=== PATIENT | male | born 1955 | race Caucasian/White ===

== ENCOUNTER → 2021-04-08 | Outpatient (CLI) | payer MEDICARE ==
[~2021-04-08] MED LIST: AMLO-258 PO; APIX2.5T PO; DEXA6TAB7 PO; LISI20TA24 PO; SIMV-46 PO
== END | disposition home or self-care (01) ==
LOC: RAH 07:40
PROVIDERS: ATTEND Family Medicine
DX: Z01.818 Encounter for other preprocedural examination (principal)
CPT/HCPCS: 71046

== ENCOUNTER 2021-05-06 08:00 | Inpatient (IN) | payer MEDICARE ==
[2021-05-05 10:10] VITALS: BP 163/92
[2021-05-05 10:23] LABS: BASOPHILS % (AUTO) 0.4 % (0.0-5.0); EOSINOPHILS % (AUTO) 2.5 % (0.0-8.0); HEMATOCRIT 52.7 % (42-54); LYMPHOCYTES % (AUTO) 31.2 % (21.0-51.0); MEAN CORPUSCULAR HEMOGLOBIN 28.7 pg (27.0-33.0); MEAN CORPUSCULAR HGB CONC 34.2 g/dL (32.0-36.0); MEAN CORPUSCULAR VOLUME 83.9 fL (79-99); MONOCYTES % (AUTO) 7.9 % (3.0-13.0); NEUTROPHILS % (AUTO) 57.7 % (40.0-77.0); PLATELET COUNT (AUTO) 250 K/uL (130-400); RED BLOOD CELL COUNT(AUTO) 6.28 MIL/uL (4.50-6.20); RED CELL DISTRIBUTION WIDTH 12.5 % (11.0-15.5); WHITE BLOOD COUNT (AUTO) 7.7 K/uL (4.8-10.8)
[2021-05-05 10:29] LABS: APPEARANCE,URINE Clear (CLEAR); BILIRUBIN,URINE Negative (NEGATIVE); COLOR,URINE Yellow (YELLOW); GLUCOSE, URINE (UA) Negative (NEGATIVE); KETONES,URINE Trace mg/dL (NEGATIVE); LEUKOCYTE ESTERASE ,URINE Negative (NEGATIVE); NITRATE,URINE Negative (NEGATIVE); OCCULT BLOOD,URINE Negative (NEGATIVE); PROTEIN,URINE Negative (NEGATIVE)
[2021-05-05 10:38] LABS: BACTERIA,URINE Rare /HPF (None Seen); MUCUS,URINE Few LPF (None Seen); RBC,URINE 0-1 /HPF (0-1); SQUAMOUS EPITHELIAL CELL,UR Rare /HPF (0-2); WBC,URINE 0-1 /HPF (0-1)
[~2021-05-06] VITALS: Ht 177.8 cm; Wt 114.8 kg
[~2021-05-06 08:00] MED LIST changes: -APIX2.5T PO; -DEXA6TAB7 PO
[2021-05-07] VITALS (21 sets, daily range): BP systolic 101–139; BP diastolic 55–86
[2021-05-07] MEDS ORDERED: CEFAZOLIN SODIUM 1 GM VIAL ONE ×4 (08:12→22:12)
[2021-05-07] MEDS ORDERED: LACTATED RINGERS 1000ML 1,000 ML IV ONE (08:12)
[2021-05-07] MEDS ORDERED: CEFAZOLIN 3GM /D5W 100ML 100 ML IV ONE (09:00)
[2021-05-07] MEDS ORDERED: TRANEXAMIC ACID 1000MG/10ML ONE ×2 (12:25→15:44)
[2021-05-07] MEDS ORDERED: PROPOFOL 10 MG/ML 20ML VIAL IV ONE (12:36)
[2021-05-07] MEDS ORDERED: MIDAZOLAM HCL 1 MG/ML 2ML VIAL ONE ×2 (12:36→16:00)
[2021-05-07] MEDS ORDERED: SUCCINYLCHOLINE CHLORIDE 20 MG/ML 10 ML VIAL ONE (12:36)
[2021-05-07] MEDS ORDERED: LIDOCAINE HCL-MPF 1% 5ML AMP IJ ONE (12:36)
[2021-05-07] MEDS ORDERED: FENTANYL CITRATE PF 50 MCG/1 ML 2ML VIAL ONE (12:37)
[2021-05-07] MEDS ORDERED: ROCURONIUM 10MG/1ML SYR 10 MG/ML ML ONE ×2 (12:37→13:37)
[2021-05-07] MEDS ORDERED: ROPIVACAINE 0.5% 5MG/ML 30ML IJ ONE (12:40)
[2021-05-07] MEDS ORDERED: CALCIUM CARB 500MG PO PRN (15:30)
[2021-05-07] MEDS ORDERED: KCL 20 MEQ ERTAB PO PRN (15:30)
[2021-05-07] MEDS ORDERED: FERROUS FUMARATE 324 MG TABLET PO PRN (15:30)
[2021-05-07] MEDS ORDERED: OXYCODONE HCL 5 MG TAB PO PRN (15:30)
[2021-05-07] MEDS ORDERED: TEMAZEPAM 15 MG CAPSULE PO PRN (15:30)
[2021-05-07] MEDS: ACETAMINOPHEN 500 MG TABLET PO SCH ×2 (15:30→19:56)
[2021-05-07] MEDS ORDERED: TRAMADOL HCL 50 MG TABLET PO PRN (15:30)
[2021-05-07] MEDS ORDERED: LIDOCAINE HCL-MPF 1% 2ML VIAL IV PRN (15:30)
[2021-05-07] MEDS ORDERED: POTASSIUM CHLORIDE 20MEQ/100ML 100 ML IV PRN (15:30)
[2021-05-07] MEDS ORDERED: DiphenhydrAMINE HCL 50 MG/ML VIAL IVP PRN (15:30)
[2021-05-07] MEDS ORDERED: POTASSIUM CHLORIDE 10% ELIXIR 20 MEQ/15 ML UDCUP PO PRN (15:30)
[2021-05-07] MEDS ORDERED: ONDANSETRON 4MG INJ IVP PRN (15:30)
[2021-05-07] MEDS: 0.9%NACL 1000ML 1,000 ML IV SCH (15:30)
[2021-05-07] MEDS ORDERED: GLYCOPYRROLATE 1 MG/5 ML SYRINGE ONE (15:50)
[2021-05-07] MEDS ORDERED: NEOSTIGMINE 5MG/5ML SYR IV ONE (15:50)
[2021-05-07] MEDS ORDERED: MEPERIDINE-PF 25 MG/ML SYG ONE ×3 (16:00→16:24)
[2021-05-07] MEDS: OXYCODONE HCL 5 MG TAB PO PRN ×2 (17:55→22:00)
[2021-05-07] MEDS: KETOROLAC 15MG/ML VIAL (15MG/ML) IV PRN (19:29)
[2021-05-07] MEDS: ASPIRIN 81 MG EC TAB PO SCH (19:55)
[2021-05-07] MEDS: PREGABALIN 25 MG CAP PO SCH (19:55)
[2021-05-07] MEDS: FAMOTIDINE 20MG TAB PO SCH (19:55)
[2021-05-07] MEDS: CELECOXIB 200 MG CAP PO SCH (19:55)
[2021-05-07] MEDS: CEFAZOLIN 3GM /D5W 100ML 100 ML IV SCH (20:30)
[2021-05-07] MEDS ORDERED: LISINOPRIL 20 MG TABLET ONE (21:54)
[2021-05-07] MEDS ORDERED: SIMVASTATIN 20 MG TABLET ONE (21:54)
[2021-05-08] VITALS: BP_SYST 117; BP_SYST 119; BP_DIAS 50; BP_DIAS 83
[2021-05-08] MEDS: 0.9%NACL 1000ML 1,000 ML IV SCH ×2 (01:22→11:30)
[2021-05-08] MEDS: KETOROLAC 15MG/ML VIAL (15MG/ML) IV PRN (01:23)
[2021-05-08 04:00] VITALS: BP 118/76
[2021-05-08 04:00] LABS: HEMATOCRIT 43.2 % (42-54); MEAN CORPUSCULAR HGB CONC 33.8 g/dL (32.0-36.0); MEAN CORPUSCULAR VOLUME 82.9 fL (79-99); RED BLOOD CELL COUNT(AUTO) 5.21 MIL/uL (4.50-6.20); RED CELL DISTRIBUTION WIDTH 12.5 % (11.0-15.5); WHITE BLOOD COUNT (AUTO) 11.7 K/uL (4.8-10.8)
[2021-05-08] MEDS: ACETAMINOPHEN 500 MG TABLET PO SCH ×2 (04:00→14:36)
[2021-05-08] MEDS: OXYCODONE HCL 5 MG TAB PO PRN ×4 (04:00→20:19)
[2021-05-08 04:06] LABS: CREATININE 1.1 mg/dL (0.5-1.5); POTASSIUM 3.9 mmol/L (3.5-5.1)
[2021-05-08] MEDS: CEFAZOLIN 3GM /D5W 100ML 100 ML IV SCH (04:43)
[2021-05-08] MEDS: POLYETHYLENE GLYCOL 3350 17 GM POWD.PACK PO SCH (07:56)
[2021-05-08] MEDS: ASPIRIN 81 MG EC TAB PO SCH ×2 (07:56→20:19)
[2021-05-08] MEDS: AMLODIPINE 5 MG TAB PO SCH (07:56)
[2021-05-08] MEDS: FAMOTIDINE 20MG TAB PO SCH ×2 (07:56→20:19)
[2021-05-08] MEDS: PREGABALIN 25 MG CAP PO SCH ×2 (07:57→20:19)
[2021-05-08] MEDS: LISINOPRIL 20 MG TABLET PO SCH (07:57)
[2021-05-08] MEDS: TAMSULOSIN HCL 0.4 MG CAP.ER.24H PO SCH (07:57)
[2021-05-08] MEDS: CELECOXIB 200 MG CAP PO SCH ×2 (07:57→20:19)
[2021-05-08 08:00] VITALS: BP 126/85
[2021-05-08 12:04] VITALS: BP 138/61
[2021-05-08 16:00] VITALS: BP 127/77
[2021-05-08] MEDS: SIMVASTATIN 20 MG TABLET PO SCH (17:24)
[2021-05-08 20:00] VITALS: BP 119/73
[2021-05-09] VITALS: BP 118/79
[2021-05-09] MEDS: ACETAMINOPHEN 500 MG TABLET PO SCH ×3 (00:14→15:30)
[2021-05-09] MEDS: KETOROLAC 15MG/ML VIAL (15MG/ML) IV PRN ×2 (00:14→13:59)
[2021-05-09 03:55] VITALS: BP 120/75
[2021-05-09 04:53] LABS: BASOPHILS % (AUTO) 0.3 % (0.0-5.0); EOSINOPHILS % (AUTO) 2.1 % (0.0-8.0); HEMATOCRIT 38.2 % (42-54); LYMPHOCYTES % (AUTO) 20.6 % (21.0-51.0); MEAN CORPUSCULAR HEMOGLOBIN 28.8 pg (27.0-33.0); MEAN CORPUSCULAR HGB CONC 34.3 g/dL (32.0-36.0); MONOCYTES % (AUTO) 13.7 % (3.0-13.0); NEUTROPHILS % (AUTO) 63.1 % (40.0-77.0); PLATELET COUNT (AUTO) 186 K/uL (130-400); RED BLOOD CELL COUNT(AUTO) 4.55 MIL/uL (4.50-6.20); RED CELL DISTRIBUTION WIDTH 12.8 % (11.0-15.5); WHITE BLOOD COUNT (AUTO) 8.6 K/uL (4.8-10.8)
[2021-05-09] MEDS: OXYCODONE HCL 5 MG TAB PO PRN (05:43)
[2021-05-09 07:55] VITALS: BP 117/65
[2021-05-09] MEDS: AMLODIPINE 5 MG TAB PO SCH (09:00)
[2021-05-09] MEDS: LISINOPRIL 20 MG TABLET PO SCH (09:00)
[2021-05-09] MEDS: TAMSULOSIN HCL 0.4 MG CAP.ER.24H PO SCH (09:00)
[2021-05-09] MEDS: PREGABALIN 25 MG CAP PO SCH (09:00)
[2021-05-09] MEDS: ASPIRIN 81 MG EC TAB PO SCH (10:13)
[2021-05-09] MEDS: FAMOTIDINE 20MG TAB PO SCH (10:13)
[2021-05-09] MEDS: POLYETHYLENE GLYCOL 3350 17 GM POWD.PACK PO SCH (10:13)
[2021-05-09] MEDS: CELECOXIB 200 MG CAP PO SCH (10:13)
[2021-05-09 12:00] VITALS: BP 134/69
[2021-05-09] MEDS ORDERED: AEC81 PO (14:23)
[2021-05-09] MEDS ORDERED: HYDR-4060 PO (14:23)
[2021-05-09 15:50] VITALS: BP 116/70
[2021-05-09] MEDS: SIMVASTATIN 20 MG TABLET PO SCH (16:39)
[2021-05-10] MEDS ORDERED: BISACODYL 10 MG SUPP.RECT RC PRN (15:30)
== END 2021-05-09 17:00 | disposition home health service (06) | DRG 470 ==
LOC: EDSTATUS 08:00 → OBSVTOIN 05-07 07:51 → DAHIP 05-07 07:51 → 4AH 05-07 17:06
PROVIDERS: ADMIT Orthopaedic Surgery; ATTEND Orthopaedic Surgery
PROC: 3E0T33Z Introduction of Anti-inflammatory into Peripheral Nerves and Plexi, Percutaneous Approach (ICD-10-PCS; 2021-05-07)
PROC: 0SRC0J9 Replacement of Right Knee Joint with Synthetic Substitute, Cemented, Open Approach (ICD-10-PCS; principal; 2021-05-07 13:38)
PROC: 3E0T3BZ Introduction of Anesthetic Agent into Peripheral Nerves and Plexi, Percutaneous Approach (ICD-10-PCS; 2021-05-07 13:38)
DX: M17.11 Unilateral primary osteoarthritis, right knee (principal); G89.29 Other chronic pain; Z20.822 Contact with and (suspected) exposure to COVID-19; M23.8X2 Other internal derangements of left knee; E66.01 Morbid (severe) obesity due to excess calories; Z68.36 Body mass index [BMI] 36.0-36.9, adult; Z87.891 Personal history of nicotine dependence
CPT/HCPCS: 36415; 80048; 81001; 85025; 85027; 87088; 87635; 87641; 97039; G0378; J0330; J0690; J1885; J2175; J2250; J2704; J2710; J2795; J3010; J3490; J7120

== ENCOUNTER 2022-04-20 03:48 | Emergency (ER) | payer MEDICARE ==
[~2022-04-20] VITALS: Ht 177.8 cm; Wt 126.1 kg
[~2022-04-20 03:48] MED LIST changes: +AEC81 PO; +HYDR-4060 PO
[2022-04-20] MEDS ORDERED: HYDROXYZINE 25 MG TABLET ONE (04:53)
[2022-04-20] MEDS ORDERED: HYDROXYZINE 25 MG TABLET PO ONE (05:00)
[2022-04-20 05:05] VITALS: BP 144/82
[2022-04-20] MEDS ORDERED: HYDR25CA PO (05:10)
== END 2022-04-20 05:21 | disposition home or self-care (01) ==
LOC: EDH 03:48
DX: G47.00 Insomnia, unspecified (principal); I10 Essential (primary) hypertension; Z79.899 Other long term (current) drug therapy; E78.00 Pure hypercholesterolemia, unspecified

== ENCOUNTER 2022-05-29 14:00 | Observation (INO) | payer MEDICARE ==
[~2022-05-29] VITALS: Ht 177.8 cm; Wt 126.1 kg
[2022-05-29 09:50] LABS: BASOPHILS % (AUTO) 0.6 % (0.0-5.0); EOSINOPHILS % (AUTO) 4.7 % (0.0-8.0); HEMATOCRIT 54.7 % (42-54); MEAN CORPUSCULAR HEMOGLOBIN 29.7 pg (27.0-33.0); MEAN CORPUSCULAR HGB CONC 34.4 g/dL (32.0-36.0); MEAN CORPUSCULAR VOLUME 86.6 fL (79-99); MONOCYTES % (AUTO) 11.4 % (3.0-13.0); NEUTROPHILS % (AUTO) 53.1 % (40.0-77.0); PLATELET COUNT (AUTO) 267 K/uL (130-400); RED BLOOD CELL COUNT(AUTO) 6.32 MIL/uL (4.50-6.20); RED CELL DISTRIBUTION WIDTH 14.2 % (11.0-15.5); WHITE BLOOD COUNT (AUTO) 8.2 K/uL (4.8-10.8)
[2022-05-29 09:53] LABS: APPEARANCE,URINE CLEAR (CLEAR); BILIRUBIN,URINE NEGATIVE (NEGATIVE); COLOR,URINE LIGHT-YELLOW (YELLOW); GLUCOSE, URINE (UA) NEGATIVE (NEGATIVE); KETONES,URINE NEGATIVE (NEGATIVE); LEUKOCYTE ESTERASE ,URINE NEGATIVE Leu/uL (NEGATIVE); NITRATE,URINE NEGATIVE (NEGATIVE); OCCULT BLOOD,URINE NEGATIVE (NEGATIVE); PROTEIN,URINE NEGATIVE (NEGATIVE); UROBILINOGEN,URINE 0.2 mg/dL (0.2-1.0)
[2022-05-29 09:57] LABS: ALBUMIN 4.4 g/dL (3.5-5.0); CARBON DIOXIDE 31 mmol/L (21-32); CHLORIDE 106 mmol/L (101-111); CREATININE 1.4 mg/dL (0.5-1.5); GLOMERULAR FILTR. RATE CALC 54 mL/min (>60); GLUCOSE,RANDOM 84 mg/dL (70-105); POTASSIUM 4.5 mmol/L (3.5-5.1); SODIUM SERUM 143 mmol/L (136-145); UREA NITROGEN, BLOOD 18 mg/dL (7-18)
[2022-05-29 09:58] LABS: CRP QUANTITATIVE < 2.00 mg/L (0.00-9.0); INR 0.95 (0.85-1.15); PROTHROMBIN TIME 10.4 SEC (9.6-11.6)
[~2022-05-29 14:00] MED LIST changes: -AEC81 PO; -HYDR-4060 PO
[2022-05-29 14:32] VITALS: BP 159/83
[2022-06-01] VITALS (24 sets, daily range): BP systolic 115–155; BP diastolic 56–91
[2022-06-01] MEDS ORDERED: CEFAZOLIN SODIUM 3 GM in DEXTROSE 5%-WATER 100 ML IVP ONE (08:00)
[2022-06-01] MEDS ORDERED: ROPIVACAINE 0.5% 5MG/ML 30ML IJ ONE ×2 (08:01→08:15)
[2022-06-01] MEDS ORDERED: KETOROLAC 30MG VIAL (30MG/ML) ONE (08:15)
[2022-06-01] MEDS ORDERED: CEFAZOLIN SODIUM 1 GM VIAL ONE (08:30)
[2022-06-01] MEDS ORDERED: LACTATED RINGERS 1000ML 1,000 ML IV ONE (08:30)
[2022-06-01] MEDS ORDERED: TRANEXAMIC ACID 1000MG/10ML ONE (08:32)
[2022-06-01] MEDS ORDERED: PROPOFOL 10 MG/ML 20ML VIAL IV ONE (09:54)
[2022-06-01] MEDS ORDERED: LIDOCAINE PF 100MG/5ML (2%) SYRINGE 5ML ONE (09:54)
[2022-06-01] MEDS ORDERED: MIDAZOLAM HCL 1 MG/ML 2ML VIAL ONE (09:55)
[2022-06-01] MEDS ORDERED: FENTANYL CITRATE PF 50 MCG/1 ML 5ML AMP IV ONE (09:55)
[2022-06-01] MEDS ORDERED: ROCURONIUM 10MG/1ML SYR 10 MG/ML ML ONE (09:55)
[2022-06-01] MEDS ORDERED: ONDANSETRON 4MG INJ ONE (09:59)
[2022-06-01] MEDS ORDERED: DEXAMETHASONE SOD PHOSPHATE 10MG/ML 1ML VIAL ONE (10:00)
[2022-06-01] MEDS ORDERED: CEFAZOLIN SODIUM 2 GM VIAL IV ONE (12:00)
[2022-06-01] MEDS ORDERED: TRANEXAMIC ACID 1000MG/10ML IV ONE (12:10)
[2022-06-01] MEDS ORDERED: EPHEDRINE SULFATE 50 MG/ML AMPULE ONE ×2 (12:34→13:16)
[2022-06-01] MEDS ORDERED: GLYCOPYRROLATE 1 MG/5 ML SYRINGE ONE (12:49)
[2022-06-01] MEDS ORDERED: NEOSTIGMINE 5MG/5ML SYR IV ONE (13:47)
[2022-06-01] MEDS ORDERED: MEPERIDINE-PF 25 MG/ML SYG ONE ×2 (14:16→14:57)
[2022-06-01] MEDS ORDERED: ONDANSETRON 4MG INJ IVP PRN (14:30)
[2022-06-01] MEDS ORDERED: POTASSIUM CHLORIDE 10% ELIXIR 20 MEQ/15 ML UDCUP PO PRN (14:30)
[2022-06-01] MEDS ORDERED: HYDROCODONE/ACETAMINOPHEN 5/325 MG TAB PO PRN (14:30)
[2022-06-01] MEDS ORDERED: CALCIUM CARB 500MG PO PRN (14:30)
[2022-06-01] MEDS ORDERED: FERROUS FUMARATE 324 MG TABLET PO PRN (14:30)
[2022-06-01] MEDS ORDERED: KCL 20 MEQ ERTAB PO PRN (14:30)
[2022-06-01] MEDS ORDERED: POTASSIUM CHLORIDE 20MEQ/100ML 100 ML IV PRN (14:30)
[2022-06-01] MEDS ORDERED: LIDOCAINE HCL-MPF 1% 2ML VIAL IV PRN (14:30)
[2022-06-01] MEDS ORDERED: DiphenhydrAMINE HCL 50 MG/ML VIAL IVP PRN (14:30)
[2022-06-01] MEDS ORDERED: FENTANYL CITRATE PF 50 MCG/1 ML 2ML VIAL ONE (15:09)
[2022-06-01] MEDS: KETOROLAC 15MG/ML VIAL (15MG/ML) IV SCH ×2 (15:11→21:31)
[2022-06-01] MEDS: SIMVASTATIN 20 MG TABLET PO SCH (17:13)
[2022-06-01] MEDS: HYDROCODONE/ACETAMINOPHEN 5/325 MG TAB PO PRN ×2 (17:15→20:44)
[2022-06-01] MEDS: 0.9%NACL 1000ML 1,000 ML IV SCH (18:01)
[2022-06-01] MEDS ORDERED: GABAPENTIN 100 MG CAPSULE ONE (19:46)
[2022-06-01] MEDS: GABAPENTIN 100 MG CAPSULE PO SCH (19:57)
[2022-06-01] MEDS: CYCLOBENZAPRINE HCL 10 MG TABLET PO PRN (19:57)
[2022-06-01] MEDS: DOCUSATE SODIUM 100 MG CAP PO SCH (19:57)
[2022-06-01] MEDS: CEFAZOLIN SODIUM 1 GM VIAL IVP SCH (20:04)
[2022-06-01] MEDS: LISINOPRIL 20 MG TABLET PO SCH (20:06)
[2022-06-01] MEDS: ACETAMINOPHEN 500 MG TABLET PO SCH (22:30)
[2022-06-02 00:17] VITALS: BP 128/75
[2022-06-02] MEDS: 0.9%NACL 1000ML 1,000 ML IV SCH ×2 (00:30→10:23)
[2022-06-02] MEDS: HYDROCODONE/ACETAMINOPHEN 5/325 MG TAB PO PRN ×5 (02:17→21:40)
[2022-06-02 04:11] LABS: MEAN CORPUSCULAR HEMOGLOBIN 29.9 pg (27.0-33.0); MEAN CORPUSCULAR VOLUME 85.6 fL (79-99); RED BLOOD CELL COUNT(AUTO) 5.61 MIL/uL (4.50-6.20); RED CELL DISTRIBUTION WIDTH 13.8 % (11.0-15.5); WHITE BLOOD COUNT (AUTO) 11.9 K/uL (4.8-10.8)
[2022-06-02 04:23] LABS: CREATININE 1.4 mg/dL (0.5-1.5); POTASSIUM 4.9 mmol/L (3.5-5.1)
[2022-06-02 04:32] VITALS: BP 121/76
[2022-06-02] MEDS: CEFAZOLIN SODIUM 1 GM VIAL IVP SCH (05:51)
[2022-06-02] MEDS: KETOROLAC 15MG/ML VIAL (15MG/ML) IV SCH (05:52)
[2022-06-02] MEDS: ACETAMINOPHEN 500 MG TABLET PO SCH ×3 (05:53→21:44)
[2022-06-02 08:00] VITALS: BP 127/68
[2022-06-02] MEDS: ASPIRIN 325MG TAB PO SCH (08:17)
[2022-06-02] MEDS: LISINOPRIL 20 MG TABLET PO SCH ×2 (08:17→20:02)
[2022-06-02] MEDS: DOCUSATE SODIUM 100 MG CAP PO SCH ×2 (08:18→20:03)
[2022-06-02] MEDS: POLYETHYLENE GLYCOL 3350 17 GM POWD.PACK PO SCH (08:18)
[2022-06-02] MEDS: AMLODIPINE 5 MG TAB PO SCH (08:18)
[2022-06-02] MEDS: GABAPENTIN 100 MG CAPSULE PO SCH ×3 (08:18→20:02)
[2022-06-02 12:00] VITALS: BP 131/69
[2022-06-02 16:00] VITALS: BP 122/71
[2022-06-02] MEDS: SIMVASTATIN 20 MG TABLET PO SCH (16:21)
[2022-06-02 20:09] VITALS: BP 133/88
[2022-06-03 00:32] VITALS: BP 121/86
[2022-06-03] MEDS: HYDROCODONE/ACETAMINOPHEN 5/325 MG TAB PO PRN ×3 (01:15→12:15)
[2022-06-03] MEDS: CYCLOBENZAPRINE HCL 10 MG TABLET PO PRN (03:32)
[2022-06-03] MEDS ORDERED: KETOROLAC 15MG/ML VIAL (15MG/ML) ONE (03:35)
[2022-06-03 03:58] VITALS: BP 161/91
[2022-06-03] MEDS ORDERED: KETOROLAC 15MG/ML VIAL (15MG/ML) IV ONE (04:00)
[2022-06-03] MEDS: ACETAMINOPHEN 500 MG TABLET PO SCH (05:55)
[2022-06-03 07:30] VITALS: BP 134/89
[2022-06-03] MEDS: POLYETHYLENE GLYCOL 3350 17 GM POWD.PACK PO SCH (09:32)
[2022-06-03] MEDS: ASPIRIN 325MG TAB PO SCH (09:32)
[2022-06-03] MEDS: DOCUSATE SODIUM 100 MG CAP PO SCH (09:32)
[2022-06-03] MEDS: GABAPENTIN 100 MG CAPSULE PO SCH (09:33)
[2022-06-03] MEDS: AMLODIPINE 5 MG TAB PO SCH (09:33)
[2022-06-03] MEDS: LISINOPRIL 20 MG TABLET PO SCH (09:33)
[2022-06-03 11:00] VITALS: BP 148/88
[2022-06-03] MEDS ORDERED: Docusate Sodium 100 Mg Cap PO (14:44)
[2022-06-03] MEDS ORDERED: GABA100C PO (14:44)
[2022-06-03] MEDS ORDERED: HYDR-4060 PO (14:44)
[2022-06-03] MEDS ORDERED: ASPI-1026 PO (14:44)
[2022-06-03] MEDS ORDERED: CYCL-309 PO (14:44)
[2022-06-04] MEDS ORDERED: BISACODYL 10 MG SUPP.RECT RC PRN (14:30)
== END 2022-06-03 15:30 | disposition home health service (06) ==
LOC: EDSTATUS 14:00 → DAHIP 06-01 07:34 → 4DH 06-01 15:36
PROVIDERS: ADMIT Student in an Organized Health Care Education/Training Program; ATTEND Student in an Organized Health Care Education/Training Program
DX: M17.12 Unilateral primary osteoarthritis, left knee (principal); Z20.822 Contact with and (suspected) exposure to COVID-19; M23.8X2 Other internal derangements of left knee; G89.29 Other chronic pain; M25.562 Pain in left knee; Z79.899 Other long term (current) drug therapy; Z98.890 Other specified postprocedural states; Z79.82 Long term (current) use of aspirin; Z86.16 Personal history of COVID-19
CPT/HCPCS: 82040; 80048 ×2; 85025; 85610; 85730; 87088; 84134; 86140; 87426; 81003; 36415 ×2; 87641; 27447; 97039 ×6; 96374; 96375; 76942; 64447; 73560; 97161; 93005; 96376; 85027; 97116 ×4; 97530 ×4; A4221; G0378 ×48; G0379; A4663; A4215 ×2; J0690 ×3; J7120; J3010 ×2; J3490 ×5; J1100; J2710; J2001; J2250; J2704; J2405 ×2; J1885 ×5; J2175 ×2; J2795 ×2; G0168; A4649 ×3; A4930; C1776; A6255; A5120; A4223; A4222; J1200; J7060

== ENCOUNTER → 2024-06-30 | Outpatient (CLI) | payer MEDICARE, OTHER ==
[~2024-06-30] MED LIST changes: +ASPI-1026 PO; +CYCL-309 PO; +Docusate Sodium 100 Mg Cap PO; +GABA100C PO; +HYDR-4060 PO
[2024-06-30 08:33] LABS: CREATININE 1.4 mg/dL (0.5-1.3)
== END | disposition home or self-care (01) ==
LOC: LAB 07:54
PROVIDERS: ATTEND Surgery
DX: D17.1 Benign lipomatous neoplasm of skin and subcutaneous tissue of trunk (principal)
CPT/HCPCS: 36415; 82565; 84520